=== PATIENT | female | born 1975 | race Caucasian/White ===

== ENCOUNTER 2018-08-26 19:34 | Emergency (ER) | payer SELFPAY ==
[2018-08-26 19:43] VITALS: BP 127/80; PULSE 55; TEMP 98.4; BMI 24.1
--- NOTE | 2018-08-26 20:19 | PDOC ---
Documentation entered by Vilma Marrufo SCRIBE, acting as scribe for Fabricio Kimball MD. Fabricio Kimball MD: This documentation has been prepared by the Yaron andrews Daisy, SCRIBE, under my direction and personally reviewed by me in its entirety. I confirm that the documentation accurately reflects all work, treatment, procedures, and medical decision making performed by me. History of Present Illness - General Chief Complaint: Injury Stated Complaint: HEAD INJURY Time Seen by Provider: 08/26/18 20:08 History Source: Patient Exam Limitations: No Limitations - History of Present Illness Initial Comments: 08/27/18 00:23 43 year old healthy F c/ no pmh p/w head injury. Pt was laying on her bed in the supine position. All of a sudden, the sheet rock from the ceiling fell and hit her on the head. No LOC. Was able to get up and get out of the room. This occurred in the afternoon. Denies any other injuries or pain. Pt stated to have a mild tension headache and some dizziness but no other symptoms. Denies any other neurological deficits. Pt went to another hospital and was waiting but came to [facility] as she did not want to wait any longer. Pt is ambulatory. Past History - Past Medical History Allergies/Adverse Reactions: Allergies Allergy/AdvReac Type Severity Reaction Status Date / Time No Known Allergies Allergy Unverified 08/26/18 19:35 Home Medications: Ambulatory Orders NK [No Known Home Medication] 08/26/18 COPD: No - Suicide/Smoking/Psychosocial Hx Smoking History: Current every day smoker Number of Cigarettes Smoked Daily: 0 Information on smoking cessation initiated: Yes Review of Systems - Review of Systems Able to Perform ROS?: Yes Comments:: 08/27/18 00:24 GENERAL/CONSTITUTIONAL: [No fever or chills. No weakness. No weight change.] HEAD, EYES, EARS, NOSE AND THROAT: [No change in vision. No ear pain or discharge. No sore throat.] CARDIOVASCULAR: [No chest pain or shortness of breath.] RESPIRATORY: [No cough, wheezing, or hemoptysis.] GASTROINTESTINAL: [No nausea, vomiting, diarrhea or constipation. No rectal bleeding.] GENITOURINARY: [No dysuria, frequency, or change in urination.] MUSCULOSKELETAL: [No joint or muscle swelling or pain. No neck or back pain.] SKIN AND BREASTS: [No rash or easy bruising.] NEUROLOGIC: [No vertigo, loss of consciousness, or loss of sensation.] +mild headache and dizziness PSYCHIATRIC: [No depression or anxiety.] ENDOCRINE: [No increased thirst. No abnormal weight change.] HEMATOLOGIC/LYMPHATIC: [No anemia, easy bleeding, or history of blood clots.] ALLERGIC/IMMUNOLOGIC: [No hives or skin allergy. No latex allergy.] *Physical Exam - Vital Signs Last Vital Signs Temp Pulse Resp BP Pulse Ox 98.4 F 55 L 16 127/80 99 08/26/18 19:37 08/26/18 19:37 08/26/18 19:37 08/26/18 19:37 08/26/18 19:37 - Physical Exam Comments: 08/27/18 00:24 GENERAL: Awake, alert, and fully oriented, in no acute distress HEAD: No signs of trauma EYES: PERRLA, EOMI, sclera anicteric, conjunctiva clear ENT: Auricles normal inspection, hearing grossly normal, nares patent, Moist mucosa NECK: Normal ROM, supple, no c-spine tenderness LUNGS: Breath sounds equal, clear to auscultation bilaterally. No wheezes, and no crackles HEART: Regular rate and rhythm, normal S1 and S2, no murmurs, rubs or gallops ABDOMEN: Soft, nontender, No guarding, no rebound. No masses EXTREMITIES: Normal range of motion, no edema. No clubbing or cyanosis. No cords, erythema, or tenderness NEUROLOGICAL: Cranial nerves II through XII intact. Normal speech, normal gait. 5/5 strength upper and lower extremities. Sensation intact throughout SKIN: Warm, Dry, normal turgor, no rashes or lesions noted. Medical Decision Making - Medical Decision Making 08/27/18 00:26 Vital Signs Temp Pulse Resp BP Pulse Ox 98.4 F 55 L 16 127/80 99 08/26/18 19:37 08/26/18 19:37 08/26/18 19:37 08/26/18 19:37 08/26/18 19:37 43 year old F c/ mild tension headache and dizziness after object hitting her head. Pt has no other neurological symptoms or findings. At this time, will defer on head imaging and have patient observe her symptoms at home. Pt is not exhibiting symptoms of lethargy, severe headache, persistent vomiting or neuro deficits. Given our discussion with the patient and the risks of radiation to the brain, patient and I had a shared decision making and will have the patient go home and see how she does at home. Pt is not on anticoagulants or any other medications. She is alert and aware. Concussion precautions given as pt is at risk for developing a concussion. Tylenol PRN Follow up with neuro for persistent headache. Return precautions given to the patient if symptoms worsen or neuro deficits develop (pt should return for head CT if these occur). Pt verbalizes and agrees with plan. I discussed the physical exam findings, ancillary test results and final diagnoses with the patient. I answered all of the patient's questions. The patient was satisfied with the care received and felt comfortable with the discharge plan and treatment plan. The patient will call their primary care physician within 24 hours to arrange follow-up and will return to the Emergency Department with any new, persistant or worsening symptoms. *DC/Admit/Observation/Transfer Diagnosis at time of Disposition: Head injury Qualifiers: Encounter type: initial encounter Qualified Code(s): S09.90XA - Unspecified injury of head, initial encounter - Discharge Dispostion Disposition: HOME Condition at time of disposition: Stable Decision to Admit order: No - Referrals Referrals: Triston Mora MD [Staff Physician] - - Patient Instructions Printed Discharge Instructions: DI for Concussion, DI for Closed Head Injury Additional Instructions: Take 650 mg tylenol every 4 hours as needed for pain. At this time, we will choose the observation method to watching your symptoms. However, if you notice that your head symptoms are worsening, please return to the ER for a CT scan of your head. It may take several days or weeks before your symptoms resolve. Please call and schedule an appointment with a neurologist. - Post Discharge Activity
== END 2018-08-26 20:23 | disposition home or self-care (01) ==
LOC: FER 19:34
DX: S09.90XA Unspecified injury of head, initial encounter (principal); R42 Dizziness and giddiness; W20.1XXA Struck by object due to collapse of building, initial encounter; Y93.89 Activity, other specified; Y92.003 Bedroom of unspecified non-institutional (private) residence as the place of occurrence of the external cause
CPT/HCPCS: 99282-25